=== PATIENT | female | born 1935 | race American Indian/Alaskan Native ===

== ENCOUNTER 2017-02-14 03:43 | Emergency (ER) | payer MEDICARE ==
[2017-02-14 04:39] LABS: Basophils % (Auto) 0.2 % (0.0-1.8); Eosinophils % (Auto) 0.4 % (0.0-4.3); Hematocrit 31.5 % (30.3-42.9); Hemoglobin 10.7 gm/dl (10.1-14.3); Mean Corpuscular HGB Conc 34 % (30-34); Mean Corpuscular Hemoglobin 30 pg (28-32); Mean Corpuscular Volume 90 fl (79-97); Platelet Count 188 K/mm3 (140-440); Red Blood Count 3.51 M/mm3 (3.65-5.03); Red Cell Distribution Width 13.8 % (13.2-15.2); White Blood Count 9.6 K/mm3 (4.5-11.0)
[2017-02-14 04:51] LABS: BUN/Creatinine Ratio 25.33; Calcium 9.1 mg/dL (8.4-10.2); Chloride 102.4 mmol/L (98-107); Potassium 3.6 mmol/L (3.6-5.0)
[2017-02-14] MEDS ORDERED: NEURONTIN PO ONE (05:58)
[2017-02-14 06:30] VITALS: BP 168/76
--- NOTE | 2017-02-14 06:33 | Emergency Department Report ---
ED General Adult HPI - General Chief complaint: Dizziness Stated complaint: GENERAL WEAKNESS Time Seen by Provider: 02/14/17 05:46 Source: EMS Mode of arrival: Stretcher Limitations: No Limitations - History of Present Illness Initial comments: Patient is an 81-year-old female who presents with generalized weakness and burning and itchiness of her hands and legs. Patient states that her symptoms are a 2 out of 10 nothing makes it worse and putting ice on her body makes it better. She states that this is going on for last 3 hours it is a burning type of pain that radiates throughout all of her body. She states that also states that she had a minor rash with this pain occurred. Patient states that she is currently not in any pain at the moment. Severity scale (0 -10): 0 - Related Data Previous Rx's Medication Instructions Recorded Last Taken Type Gabapentin [Neurontin] 100 mg PO Q8HR PRN #20 capsule 02/14/17 Unknown Rx Allergies Allergy/AdvReac Type Severity Reaction Status Date / Time No Known Allergies Allergy Unverified 02/14/17 03:59 ED Review of Systems ROS: Stated complaint: GENERAL WEAKNESS Other details as noted in HPI Constitutional: denies: chills, fever Eyes: denies: eye pain, eye discharge, vision change ENT: denies: ear pain, throat pain Respiratory: denies: cough, shortness of breath, wheezing Cardiovascular: denies: chest pain, palpitations Endocrine: no symptoms reported Gastrointestinal: denies: abdominal pain, nausea, diarrhea Genitourinary: denies: urgency, dysuria, discharge Musculoskeletal: myalgia. denies: back pain, joint swelling, arthralgia Skin: as per HPI, pruritus. denies: rash, lesions Neurological: denies: headache, weakness, paresthesias Psychiatric: denies: anxiety, depression Hematological/Lymphatic: denies: easy bleeding, easy bruising ED Past Medical Hx - Social History Smoking Status: Never Smoker Substance Use Type: None - Medications Home Medications: Home Medications Medication Instructions Recorded Confirmed Last Taken Type Gabapentin [Neurontin] 100 mg PO Q8HR PRN #20 capsule 02/14/17 Unknown Rx ED Physical Exam - General Limitations: No Limitations General appearance: alert, in no apparent distress - Head Head exam: Present: atraumatic, normocephalic - Eye Eye exam: Present: normal appearance - ENT ENT exam: Present: mucous membranes moist - Neck Neck exam: Present: normal inspection - Respiratory Respiratory exam: Present: normal lung sounds bilaterally. Absent: respiratory distress - Cardiovascular Cardiovascular Exam: Present: regular rate, normal rhythm. Absent: systolic murmur, diastolic murmur, rubs, gallop - GI/Abdominal GI/Abdominal exam: Present: soft, normal bowel sounds - Extremities Exam Extremities exam: Present: normal inspection - Back Exam Back exam: Present: normal inspection - Neurological Exam Neurological exam: Present: alert, oriented X3 - Psychiatric Psychiatric exam: Present: normal affect, normal mood - Skin Skin exam: Present: warm, dry, intact, normal color. Absent: rash ED Course Vital Signs 02/14/17 02/14/17 02/14/17 04:00 05:08 05:30 Temperature 98.3 F Pulse Rate 75 70 65 Respiratory 18 16 19 Rate Blood Pressure 163/72 Blood Pressure 154/85 [Right] O2 Sat by Pulse 100 99 99 Oximetry 02/14/17 06:00 Temperature Pulse Rate 72 Respiratory 21 Rate Blood Pressure 168/76 Blood Pressure [Right] O2 Sat by Pulse 99 Oximetry - Reevaluation(s) Reevaluation #1: 02/14/17 06:32 Evaluated patient I will give patient one oral dose of tramadol until patient to get some anti-itching cream at [facility]. ED Medical Decision Making - Lab Data Result diagrams: 02/14/17 04:15 02/14/17 04:15 Lab Results 02/14/17 02/14/17 Range/Units 04:15 04:15 WBC 9.6 (4.5-11.0) K/mm3 RBC 3.51 L (3.65-5.03) M/mm3 Hgb 10.7 (10.1-14.3) gm/dl Hct 31.5 (30.3-42.9) % MCV 90 (79-97) fl MCH 30 (28-32) pg MCHC 34 (30-34) % RDW 13.8 (13.2-15.2) % Plt Count 188 (140-440) K/mm3 Lymph % (Auto) 10.9 L (13.4-35.0) % [place] % (Auto) 8.0 H (0.0-7.3) % Eos % (Auto) 0.4 (0.0-4.3) % Baso % (Auto) 0.2 (0.0-1.8) % Lymph # 1.0 L (1.2-5.4) K/mm3 [place] # 0.8 (0.0-0.8) K/mm3 Eos # 0.0 (0.0-0.4) K/mm3 Baso # 0.0 (0.0-0.1) K/mm3 Seg Neutrophils % 80.5 H (40.0-70.0) % Seg Neutrophils # 7.7 (1.8-7.7) K/mm3 Sodium 143 (137-145) mmol/L Potassium 3.6 (3.6-5.0) mmol/L Chloride 102.4 (98-107) mmol/L Carbon Dioxide 24 (22-30) mmol/L Anion Gap 20 mmol/L BUN 38 H (7-17) mg/dL Creatinine 1.5 H (0.7-1.2) mg/dL Estimated GFR 40 ml/min BUN/Creatinine Ratio 25.33 % Glucose 132 H (65-100) mg/dL Calcium 9.1 (8.4-10.2) mg/dL - EKG Data -: EKG Interpreted by Me - EKG Data 02/14/17 06:34 EKG shows sinus rhythm with first-degree AV block and 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 One dose of gabapentin. Patient's laboratory findings are within the normal limits. Patient has slightly elevated creatinine 1.5 but due to her age her kidney function is expected to be decreased. Advised patient to drink lots of fluids at home and that she needs to follow up with her primary care doctor as soon as possible. Gave patient return precautions to come back to the emergency department. Additional verbal discharge instructions were given Critical care attestation.: If time is entered above; I have spent that time in minutes in the direct care of this critically ill patient, excluding procedure time. ED Disposition Clinical Impression: Neuropathy Disposition: DC-01 TO HOME OR SELFCARE Is pt being admited?: No Does the pt Need Aspirin: No Condition: Stable Instructions: Peripheral Neuropathy (ED) Prescriptions: Gabapentin [Neurontin] 100 mg PO Q8HR PRN #20 capsule PRN Reason: Pain Referrals: ALFRED DIEHL JR, MD [Primary Care Provider] - 3-5 Days
== END 2017-02-14 08:17 | disposition home or self-care (01) ==
LOC: ED 03:43
DX: G62.9 Polyneuropathy, unspecified (principal)
CPT/HCPCS: 36415; 80048; 85025; 99283

== ENCOUNTER 2020-06-14 01:25 | Emergency (ER) | payer MEDICARE ==
[2020-06-14] MEDS ORDERED: NAPROXEN 500 MG TAB PO SCH (08:00)
--- NOTE | 2020-06-14 08:03 | Emergency Department Report ---
ED General Adult HPI - General Chief complaint: Pain General Stated complaint: ARTHRITIS/HYPERTENSION PUI?: No Source: patient, EMS Mode of arrival: Wheelchair Limitations: No Limitations - History of Present Illness Initial comments: The patient was evaluated in the emergency department for symptoms described in the history of present illness. He/she was evaluated in the context of the global COVID-19 pandemic, which necessitated consideration that the patient might be at risk for infection with the virus that causes COVID-19. Institutional protocols and algorithms that pertain to the evaluation of patients at risk for COVID-19 are in a state of rapid change based on information released by regulatory bodies including the CDC and federal and state organizations. These policies and algorithms were followed during the patient's care in the emergency department. Please note that these policies, procedures and recommendations changed on a rapid basis. 84-year-old -[place] female presents to the emergency room complaining of left-sided arthritis pain. Patient states that she usually takes Aleve which helps with her arthritis pain but has not taken in the last week. Patient states most of her pain is in her knees. Patient denies any falls. Patient states that she had ran out of Aleve and her daughter has not picked her any. Patient came by EMS. Patient denies any fever chills no sweats no chest pain no shortness of breath no abdominal pain no nausea no vomiting. Onset/Timin -: days(s) Location: left, right, lower extremity Radiation: non-radiation Severity scale (0 -10): 7 Quality: aching Consistency: constant Improves with: immobilization Worsens with: movement Associated Symptoms: denies other symptoms Treatments Prior to Arrival: none - Related Data Previous Rx's Medication Instructions Recorded Last Taken Type Gabapentin 100 mg PO Q8HR PRN #20 capsule 02/14/17 Unknown Rx Naproxen 375 mg PO BID PRN #60 tablet 06/14/20 Unknown Rx Allergies Allergy/AdvReac Type Severity Reaction Status Date / Time No Known Allergies Allergy Unverified 02/14/17 03:59 ED Review of Systems ROS: Stated complaint: ARTHRITIS/HYPERTENSION Other details as noted in HPI Comment: All other systems reviewed and negative ED Past Medical Hx - Past Medical History Hx Hypertension: Yes Hx Arthritis: Yes - Surgical History Past Surgical History?: No - Social History Smoking Status: Never Smoker Substance Use Type: None - Medications Home Medications: Home Medications Medication Instructions Recorded Confirmed Last Taken Type Gabapentin 100 mg PO Q8HR PRN #20 capsule 02/14/17 Unknown Rx Naproxen 375 mg PO BID PRN #60 tablet 06/14/20 Unknown Rx ED Physical Exam - General Limitations: No Limitations General appearance: alert, in no apparent distress - Head Head exam: Present: atraumatic, normocephalic - Eye Eye exam: Present: normal appearance - Neck Neck exam: Present: normal inspection, full ROM - Respiratory Respiratory exam: Absent: accessory muscle use - Cardiovascular Cardiovascular Exam: Present: regular rate, normal rhythm. Absent: systolic murmur, diastolic murmur, rubs, gallop - Extremities Exam Extremities exam: Present: tenderness, other (Mildly contracted) - Back Exam Back exam: Present: normal inspection - Neurological Exam Neurological exam: Present: alert, oriented X3 - Psychiatric Psychiatric exam: Present: normal affect, normal mood - Skin Skin exam: Present: warm, dry, intact, normal color. Absent: rash ED Course Vital Signs 06/14/20 06/14/20 06/14/20 04:05 07:24 07:40 Temperature 98.3 F Pulse Rate 82 77 Respiratory 18 18 18 Rate Blood Pressure 197/102 Blood Pressure 195/88 [Right] O2 Sat by Pulse 99 99 100 Oximetry ED Medical Decision Making - Medical Decision Making 84-year-old -[place] female presents to the emergency room complaining of left-sided arthritis pain. Patient states that she usually takes Aleve which helps with her arthritis pain but has not taken in the last week. Patient states most of her pain is in her knees. Patient denies any falls. Patient states that she had ran out of Aleve and her daughter has not picked her any. Patient came by EMS. Patient denies any fever chills no sweats no chest pain no shortness of breath no abdominal pain no nausea no vomiting. Patient was given naproxen during her ER visit. Patient will be discharged home with a prescription for naproxen and to follow-up with her primary care provider. Critical care attestation.: If time is entered above; I have spent that time in minutes in the direct care of this critically ill patient, excluding procedure time. ED Disposition Clinical Impression: Arthritis pain, Bilateral chronic knee pain Disposition: TO HOME OR SELFCARE Is pt being admited?: No Does the pt Need Aspirin: No Condition: Stable Instructions: Arthritis, [id number] Additional Instructions: Take your medication as needed. Follow-up with your primary care provider. Be sure to increase your water intake while taking medication. Prescriptions: Naproxen 375 mg PO BID PRN #60 tablet PRN Reason: Pain , Severe (7-10) Referrals: PRIMARY CARE, [Primary Care Provider] - 3-5 Days
[2020-06-14 11:51] VITALS: BP 190/88
== END 2020-06-14 11:52 | disposition home or self-care (01) ==
LOC: ED 01:25
DX: M25.562 Pain in left knee (principal); M25.561 Pain in right knee; G89.29 Other chronic pain; M17.4 Other bilateral secondary osteoarthritis of knee; I10 Essential (primary) hypertension; Z79.899 Other long term (current) drug therapy